=== PATIENT | male | born 1975 | race Hispanic/Latino ===

== ENCOUNTER 2018-06-13 00:20 | Emergency (ER) | payer BC ==
[2018-06-13] MEDS ORDERED: ACETAMINOPHEN 500 MG TAB ONE (01:01)
[2018-06-13] MEDS ORDERED: MORPHINE 4 MG/ML SYR ONE (01:49)
[2018-06-13] MEDS ORDERED: NA CHLORIDE 0.9% 1,000 ML ONE (01:50)
[2018-06-13 01:54] LABS: Absolute Lymphocytes (CBC) 1.1 K/uL (0.7-4.9); Absolute Monocytes 0.7 K/uL (0.1-1.3); Absolute Neutrophil 6.9 K/uL (1.8-8.0); Basophils % 0.2 % (0-1.3); Eosinophils % 0.1 % (0-4.4); Hematocrit 36.6 % (39.6-49.0); Lymphocytes % 12.9 % (15.3-44.8); MCV 95.7 fL (80-100); Monocytes % 7.8 % (3.3-12.3); Protime INR 1.2; RBC Red Blood Cell Count 3.83 M/uL (4.33-5.43)
[2018-06-13 02:10] LABS: ALT/SGPT 22 U/L (12-78); AST/SGOT 19 U/L (15-37); Albumin 3.7 g/dL (3.4-5.0); Alkaline Phosphatase 62 U/L (45-117); BUN Blood Urea Nitrogen 16 mg/dL (7-18); Bicarbonate 23 mmol/L (21-32); Bilirubin Direct 0.2 mg/dL (0-0.2); Bilirubin Total 0.8 mg/dL (0.2-1.0); Glucose Level 125 mg/dL (74-106); Magnesium 1.8 mg/dL (1.8-2.4); NT PRO-BNP 86 pg/mL (<125); Potassium 3.5 mmol/L (3.5-5.1); Protein, Total 7.5 g/dL (6.4-8.2); Sodium Level 140 mmol/L (136-145); Troponin (Emerg Dept Use Only) < 0.02 ng/mL (0.0-0.045)
[2018-06-13] MEDS ORDERED: KETOROLAC 30 MG/ML INJ ONE (02:23)
[2018-06-13] MEDS ORDERED: CEFTRIAXONE/SWI 1gm 1 GM/10 ML SYR ONE (02:43)
[2018-06-13] MEDS ORDERED: AZITHROMYCIN 250 MG TAB ONE (02:43)
--- NOTE | 2018-06-13 04:37 | EDPHYS ---
Physician Documentation [facility] Name: Placido Javier Age: 42 yrs Sex: Male : 1975 Arrival Date: 06/13/2018 Time: 00:22 Bed 20 Private MD: ED Physician Brian Ye HPI: 06/13 00:55 This 42 yrs old Male presents to ER via Ambulatory with complaints of Fever, cp Cough. 00:55 The patient or guardian reports cough, with productive sputum. cp 00:55 Onset: The symptoms/episode began/occurred 1 week(s) ago. Associated signs and cp symptoms: Pertinent positives: chest pain, fever, sore throat. The patient reports fever, with an emergency department temperature of 102.6 degrees Fahrenheit. Associated signs and symptoms: Pertinent positives: backache, Pertinent negatives: abdominal pain, altered mental status, diarrhea, skin rash, vomiting. Historical: - Allergies: 00:42 No Known Allergies; bb - Home Meds: 00:42 Metformin Oral [Active]; lisinopril Oral [Active]; Glipizide Oral [Active]; bb - PMHx: 00:42 Diabetes - NIDDM; Hypertension; bb - PSHx: 00:42 None; bb - Immunization history:: Adult Immunizations up to date. - Social history:: Smoking status: Patient/guardian denies using tobacco, Patient/guardian denies using alcohol, street drugs. - Ebola Screening: : No symptoms or risks identified at this time. ROS: 01:00 Constitutional: Positive for fever, Negative for poor PO intake. cp 01:00 Eyes: Negative for injury, pain, redness, and discharge. cp 01:00 ENT: Positive for sore throat, Negative for drainage from ear(s), ear pain, difficulty swallowing, difficulty handling secretions. 01:00 Cardiovascular: Positive for chest pain, of the left lower lateral chest, Negative for edema, palpitations. 01:00 Respiratory: Positive for cough, Negative for hemoptysis, shortness of breath, wheezing. 01:00 Abdomen/GI: Negative for abdominal pain, nausea, vomiting, and diarrhea. 01:00 Back: Positive for pain at rest, of the left subscapular area. 01:00 : Negative for urinary symptoms. 01:00 Skin: Negative for cellulitis, rash. 01:00 Neuro: Negative for altered mental status, headache, syncope, near syncope, weakness. 01:00 All other systems are negative. Exam: 01:05 Constitutional: The patient appears in no acute distress, alert, awake, cp non-diaphoretic, non-toxic, well developed, well nourished, obese. 01:05 Head/Face: Normocephalic, atraumatic. Eyes: Pupils equal round and reactive to light, cp extra-ocular motions intact. Lids and lashes normal. Conjunctiva and sclera are non-icteric and not injected. Cornea within normal limits. Periorbital areas with no swelling, redness, or edema. ENT: Nares patent. No nasal discharge, no septal abnormalities noted. Tympanic membranes are normal and external auditory canals are clear. Oropharynx with no redness, swelling, or masses, exudates, or evidence of obstruction, uvula midline. Mucous membranes moist. Neck: Trachea midline, no thyromegaly or masses palpated, and no cervical lymphadenopathy. Supple, full range of motion without nuchal rigidity, or vertebral point tenderness. No Meningismus. 01:05 Chest/axilla: Inspection: normal, Palpation: crepitus, is not appreciated, tenderness, that is mild, of the left lateral lower posterior chest. 01:05 Cardiovascular: Rate: normal, Rhythm: regular, Heart sounds: murmur, not appreciated, rub, not appreciated, gallop, not appreciated, Edema: is not appreciated, JVD: is not appreciated. 01:05 Respiratory: the patient does not display signs of respiratory distress, Respirations: normal, no use of accessory muscles, no retractions, no splinting, no tachypnea, labored breathing, is not present, Breath sounds: bronchial sounds, that are mild, are heard in the left posterior lower lobe, decreased breath sounds, are not appreciated, stridor, is not appreciated, + upper airway congestion. wheezing: is not appreciated. 01:05 Abdomen/GI: Inspection: obese Bowel sounds: active, all quadrants, Palpation: abdomen is soft and non-tender, in all quadrants, rebound tenderness, is not appreciated, involuntary guarding, is not appreciated. 01:05 Back: pain, that is moderate, of the left subscapular area, ROM is normal. 01:05 Skin: cellulitis, is not appreciated, no rash present. 01:05 Neuro: Orientation: to person, place \T\ time. Mentation: lucid, able to follow commands, Cerebellar function: is grossly normal, Motor: moves all fours, strength is normal, Sensation: is normal. 02:02 ECG was reviewed by the Attending Physician. Vital Signs: 00:42 BP 128 / 68; Pulse 98; Resp 16 S; Temp 102.6(O); Pulse Ox 96% on R/A; Weight 123.38 kg bb (R); Height 5 ft. 8 in. (172.72 cm) (R); Pain 7/10; 01:47 BP 113 / 60; Pulse 86; Resp 16 S; Pulse Ox 96% on R/A; jd3 02:19 Temp 102.2(O); jd3 02:48 BP 120 / 70; Pulse 78; Resp 16 S; Pulse Ox 96% on R/A; jd3 03:35 Pulse 80; Resp 15 S; Temp 99.5(O); Pulse Ox 99% on R/A; jd3 00:42 Body Mass Index 41.36 (123.38 kg, 172.72 cm) MDM: 00:27 Patient medically screened. 03:15 Data reviewed: vital signs, nurses notes, lab test result(s), EKG, radiologic studies, cp plain films, and as a result, I will discharge patient. 03:15 Test interpretation: by ED physician or midlevel provider: ECG, plain radiologic cp studies. Counseling: I had a detailed discussion with the patient and/or guardian regarding: the historical points, exam findings, and any diagnostic results supporting the discharge/admit diagnosis, lab results, radiology results, the need for outpatient follow up, a family practitioner, to return to the emergency department if symptoms worsen or persist or if there are any questions or concerns that arise at home. Response to treatment: the patient's symptoms have markedly improved after treatment. 06/13 01:05 Order name: Flu; Complete Time: 02:28 bb 06/13 02:28 Interpretation: Reviewed. 06/13 01:12 Order name: Basic Metabolic Panel; Complete Time: 02:12 cp 06/13 02:12 Interpretation: Normal except: CL 108; GLUC 125; CA 8.2. 06/13 01:12 Order name: CBC with Diff; Complete Time: 02:04 cp 06/13 02:04 Interpretation: Normal except: RBC 3.83; HGB 13.0; HCT 36.6; MONISHA% 79.0; LYM% 12.9. 06/13 01:12 Order name: LFT's; Complete Time: 02:12 06/13 02:12 Interpretation: Normal except: GLOB 3.8; A/G 1.0. 06/13 01:12 Order name: Magnesium; Complete Time: 02:12 06/13 01:12 Order name: NT PRO-BNP; Complete Time: 02:12 06/13 01:12 Order name: PT-INR; Complete Time: 02:04 06/13 02:05 Interpretation: Abnormal: PT 14.2. 06/13 01:12 Order name: Troponin (emerg Dept Use Only); Complete Time: 02:12 06/13 01:12 Order name: XRAY Chest Pa And Lat (2 Views); Complete Time: 23:07 06/13 23:07 Interpretation: Report reviewed. 06/13 01:12 Order name: Strep; Complete Time: 02:28 06/13 02:28 Interpretation: Reviewed. 06/13 02:17 Order name: Throat Culture EDAR 06/13 01:12 Order name: Cardiac monitoring; Complete Time: 01:46 06/13 01:12 Order name: EKG - Nurse/Tech; Complete Time: 01:59 06/13 01:12 Order name: IV Saline Lock; Complete Time: 01:40 06/13 01:12 Order name: Labs collected and sent; Complete Time: 01:40 06/13 01:12 Order name: O2 Per Protocol; Complete Time: 01:24 06/13 01:12 Order name: O2 Sat Monitoring; Complete Time: 01:24 EC:02 Rate is 86 beats/min. Rhythm is regular. MI interval is normal. QRS interval is normal. cp QT interval is normal. T waves are Inverted in lead III. Interpreted by me. Reviewed by me. Administered Medications: 00:55 Drug: Tylenol 1000 mg Route: PO; jd3 03:41 Follow up: Response: No adverse reaction jd3 01:46 Drug: morphine 2 mg Route: IVP; Site: right antecubital; jd3 02:45 Follow up: Response: No adverse reaction jd3 01:47 Drug: NS 0.9% 1000 ml Route: IV; Rate: 1 bolus; Site: right antecubital; jd3 03:36 Follow up: Response: No adverse reaction; IV Status: Completed infusion; IV Intake: jd3 1000ml 02:18 Drug: TORadol 30 mg Route: IVP; Site: right antecubital; jd3 02:45 Follow up: Response: No adverse reaction jd3 02:44 Drug: morphine 2 mg Route: IVP; Site: right antecubital; jd3 03:37 Follow up: Response: No adverse reaction jd3 02:45 Drug: Rocephin - (cefTRIAXone) 1 grams Route: IVPB; Infused Over: 30 mins; Site: right jd3 antecubital; 03:36 Follow up: Response: No adverse reaction; IV Status: Completed infusion jd3 02:45 Drug: Zithromax 500 mg Route: PO; jd3 03:36 Follow up: Response: No adverse reaction jd3 Disposition: 06/13/18 03:20 Discharged to Home. Impression: Pneumonia due to other specified bacteria. - Condition is Stable. - Discharge Instructions: Community-Acquired Pneumonia, Adult. - Prescriptions for Augmentin 875- 125 mg Oral Tablet - take 1 tablet by ORAL route every 12 hours for 10 days; 20 tablet. Ibuprofen 800 mg Oral Tablet - take 1 tablet by ORAL route every 8 hours As needed take with food; 30 tablet. Zithromax Z- Jt 250 mg Oral Tablet - take 1 tablet by ORAL route as directed for 5 days Day 1 - take two (2) tablets one time. Day 2, 3, 4 , 5 take one (1) tablet once daily.; 6 tablet. Albuterol Sulfate 90 mcg/actuation - inhale 1-2 puff by INHALATION route every 4-6 hours; 1 Inhaler. - Medication Reconciliation Form, Thank You Letter, Antibiotic Education, Prescription Opioid Use, Work release form form. - Follow up: Private Physician; When: 1 - 2 days; Reason: Recheck today's complaints. - Problem is new. - Symptoms have improved. Addendum: 06/14/2018 09:49 Co-signature as Attending Physician, Brian Ye MD I agree with the assessment and c nicholas plan of care. Signatures: Dispatcher [employer] Brian Oliva MD MD cha Ballard, Brenda RN RN Brian Jeffries PA PA cp Davies, Jonathon RN RN jd3 Corrections: (The following items were deleted from the chart) 06/13 02:12 02:12 Normal except: CL 108; GLUC 125. cp cp 03:40 03:20 06/13/2018 03:20 Discharged to Home. Impression: Pneumonia due to other specified jd3 bacteria. Condition is Stable. Forms are Medication Reconciliation Form, Thank You Letter, Antibiotic Education, Prescription Opioid Use. Follow up: Private Physician; When: 1 - 2 days; Reason: Recheck today's complaints. Problem is new. Symptoms have improved. cp
--- NOTE | 2018-06-13 04:37 | ER ---
Nurse's Notes [facility] Name: Placido Javier Age: 42 yrs Sex: Male : 1975 Arrival Date: 06/13/2018 Time: 00:22 Bed 20 Private MD: Diagnosis: Pneumonia due to other specified bacteria Presentation: 06/13 00:38 Presenting complaint: Patient states: he has had fever, cough, chills and back pain bb when coughing since last Thursday symptoms seemed to improve then got worse again. Transition of care: patient was not received from another setting of care. Onset of symptoms was June 05, 2018. Risk Assessment: Do you want to hurt yourself or someone else? Patient reports no desire to harm self or others. Initial Sepsis Screen: Does the patient meet any 2 criteria? No. Patient's initial sepsis screen is negative. Does the patient have a suspected source of infection? No. Patient's initial sepsis screen is negative. Care prior to arrival: None. 00:38 Method Of Arrival: Ambulatory bb 00:38 Acuity: SEKOU 3 bb Historical: - Allergies: 00:42 No Known Allergies; bb - Home Meds: 00:42 Metformin Oral [Active]; lisinopril Oral [Active]; Glipizide Oral [Active]; bb - PMHx: 00:42 Diabetes - NIDDM; Hypertension; bb - PSHx: 00:42 None; bb - Immunization history:: Adult Immunizations up to date. - Social history:: Smoking status: Patient/guardian denies using tobacco, Patient/guardian denies using alcohol, street drugs. - Ebola Screening: : No symptoms or risks identified at this time. Screenin:57 Abuse screen: Denies threats or abuse. Nutritional screening: No deficits noted. jd3 Tuberculosis screening: No symptoms or risk factors identified. Fall Risk Ambulatory Aid- None/Bed Rest/Nurse Assist (0 pts). Gait- Normal/Bed Rest/Wheelchair (0 pts) Mental Status- Oriented to own ability (0 pts). Total Pulido Fall Scale indicates No Risk (0-24 pts). Assessment: 00:55 General: Appears in no apparent distress. uncomfortable, Behavior is calm, cooperative, jd3 appropriate for age, Reports fever for. Pain: Complains of pain in back Quality of pain is described as aching. Neuro: Level of Consciousness is awake, alert, obeys commands, Oriented to person, place, time, situation, Appropriate for age. Cardiovascular: Denies chest pain, Heart tones S1 S2 present Capillary refill < 3 seconds Patient's skin is warm and dry. Respiratory: Reports cough that is productive, pain with cough Airway is patent Respiratory effort is even, unlabored, Respiratory pattern is regular, symmetrical, Breath sounds are clear bilaterally. GI: No signs and/or symptoms were reported involving the gastrointestinal system. : No signs and/or symptoms were reported regarding the genitourinary system. EENT: No signs and/or symptoms were reported regarding the EENT system. Derm: Skin is intact, Skin is dry, Skin is normal, Skin temperature is warm. Musculoskeletal: Circulation, motion, and sensation intact. Range of motion: intact in all extremities. 01:45 Reassessment: Patient appears in no apparent distress at this time. No changes from jd3 previously documented assessment. Patient and/or family updated on plan of care and expected duration. Pain level reassessed. Patient is alert, oriented x 3, equal unlabored respirations, skin warm/dry/pink. 02:49 Reassessment: Patient appears in no apparent distress at this time. No changes from jd3 previously documented assessment. Patient and/or family updated on plan of care and expected duration. Pain level reassessed. Patient is alert, oriented x 3, equal unlabored respirations, skin warm/dry/pink. 03:38 Reassessment: Patient appears in no apparent distress at this time. Patient and/or jd3 family updated on plan of care and expected duration. Pain level reassessed. Patient is alert, oriented x 3, equal unlabored respirations, skin warm/dry/pink. pt reported understanding of discharge instructions, even and steady gait upon discharge. Patient states feeling better. Vital Signs: 00:42 BP 128 / 68; Pulse 98; Resp 16 S; Temp 102.6(O); Pulse Ox 96% on R/A; Weight 123.38 kg bb (R); Height 5 ft. 8 in. (172.72 cm) (R); Pain 7/10; 01:47 BP 113 / 60; Pulse 86; Resp 16 S; Pulse Ox 96% on R/A; jd3 02:19 Temp 102.2(O); jd3 02:48 BP 120 / 70; Pulse 78; Resp 16 S; Pulse Ox 96% on R/A; jd3 03:35 Pulse 80; Resp 15 S; Temp 99.5(O); Pulse Ox 99% on R/A; jd3 00:42 Body Mass Index 41.36 (123.38 kg, 172.72 cm) ED Course: 00:22 Patient arrived in ED. ag3 00:27 Brian Matthew PA is PHCP. cp 00:27 rBian Ye MD is Attending Physician. cp 00:42 Triage completed. bb 00:42 Arm band placed on Patient placed in an exam room, on a stretcher, on pulse oximetry. bb Family accompanied patient. 00:51 Douglas Valentine RN is Primary Nurse. jd3 00:57 Patient has correct armband on for positive identification. Bed in low position. Call jd3 light in reach. Side rails up X 1. Adult w/ patient. 01:21 Patient moved to radiology. sg4 01:23 X-ray completed. Patient tolerated procedure well. sg4 01:23 Patient moved back from radiology. sg4 01:24 XRAY Chest Pa And Lat (2 Views) In Process Unspecified. EDMS 01:37 Inserted saline lock: 20 gauge in right antecubital area, using aseptic technique. jd3 Blood collected. 03:34 No provider procedures requiring assistance completed. IV discontinued, intact, jd3 bleeding controlled, No redness/swelling at site. Pressure dressing applied. Administered Medications: 00:55 Drug: Tylenol 1000 mg Route: PO; jd3 03:41 Follow up: Response: No adverse reaction jd3 01:46 Drug: morphine 2 mg Route: IVP; Site: right antecubital; jd3 02:45 Follow up: Response: No adverse reaction jd3 01:47 Drug: NS 0.9% 1000 ml Route: IV; Rate: 1 bolus; Site: right antecubital; jd3 03:36 Follow up: Response: No adverse reaction; IV Status: Completed infusion; IV Intake: jd3 1000ml 02:18 Drug: TORadol 30 mg Route: IVP; Site: right antecubital; jd3 02:45 Follow up: Response: No adverse reaction jd3 02:44 Drug: morphine 2 mg Route: IVP; Site: right antecubital; jd3 03:37 Follow up: Response: No adverse reaction jd3 02:45 Drug: Rocephin - (cefTRIAXone) 1 grams Route: IVPB; Infused Over: 30 mins; Site: right jd3 antecubital; 03:36 Follow up: Response: No adverse reaction; IV Status: Completed infusion jd3 02:45 Drug: Zithromax 500 mg Route: PO; jd3 03:36 Follow up: Response: No adverse reaction jd3 Intake: 03:36 IV: 1000ml; Total: 1000ml. jd3 Outcome: 03:20 Discharge ordered by . cp 03:34 Discharged to home ambulatory, with family. jd3 03:34 Condition: stable 03:34 Discharge instructions given to patient, family, Instructed on discharge instructions, follow up and referral plans. medication usage, Demonstrated understanding of instructions, follow-up care, medications, Prescriptions given X 4. 03:40 Patient left the ED. jd3 Signatures: Dispatcher [employer] Delia Almazan RN RN bb Page, Corey, PA PA cp Davies, Jonathon, RN RN jMyrna [email or web address] Keshia Dorantes sg4
[2018-06-13 05:04] VITALS: BP 120/70
[2018-06-13 05:06] VITALS: TEMP 99.5; O2SAT 99
--- NOTE | 2018-06-13 09:01 | RAD REPORT ---
EXAM DESCRIPTION: RAD - Chest Pa And Lat (2 Views) - 06/13/2018 1:24 am CLINICAL HISTORY: Cough, fever, chills COMPARISON: June 2017 TECHNIQUE: PA and lateral views of the chest were obtained. FINDINGS: The lungs are underinflated. Consolidation is present in the posterior left lung base. H eart size is normal and central vasculature is within normal limits. No pleural effusion or pneumoth orax seen. No acute bony finding noted. No aortic abnormality. IMPRESSION: Moderate-size left lung base pneumonia.
--- NOTE | 2018-06-14 07:21 | EKG ---
Test Date: 2018-06-13 Test Time: 01:53:59 Pool Table Operator: LISA MEASUREMENT RESULTS: Intervals: Rate: 86 CT: 156 QRSD: 84 QT: 368 QTc: 440 [place]: P: 26 CT: 156 QRS: 30 T: 22 INTERPRETIVE STATEMENTS: Normal sinus rhythm Normal ECG Compared to ECG 06/10/2017 07:51:15 Sinus bradycardia no longer present Myocardial infarct finding no longer present Electronically Signed On 06-14-18 07:20:49 CYBER INCIDENT RESPONDER by Westley Jones
== END 2018-06-13 03:40 | disposition home or self-care (01) ==
LOC: ER 00:20
DX: J15.8 Pneumonia due to other specified bacteria (principal); E11.9 Type 2 diabetes mellitus without complications; I10 Essential (primary) hypertension
CPT/HCPCS: 36415; 71046; 80048; 80076; 83735; 83880; 84484; 85025; 85610; 87070; 87081; 87804; 93005; 96361; 96365; 96375; 99284; J0696; J7030

== ENCOUNTER 2020-08-22 09:43 | Emergency (ER) | payer BC, OTHER ==
[2020-08-22] MEDS ORDERED: LEVALBUTEROL 1.25 MG/3 ML NEB ONE (10:41)
[2020-08-22 11:04] LABS: ALT/SGPT 24 U/L (12-78); AST/SGOT 28 U/L (15-37); Absolute Lymphocytes (CBC) 1.2 K/uL (0.7-4.9); Albumin 3.5 g/dL (3.4-5.0); Alkaline Phosphatase 89 U/L (45-117); BUN Blood Urea Nitrogen 16 mg/dL (7-18); Basophils % 0.2 % (0-1.3); Bicarbonate 25 mmol/L (21-32); Bilirubin Total 0.8 mg/dL (0.2-1.0); Glucose Level 106 mg/dL (74-106); Hematocrit 40.6 % (39.6-49.0); Lymphocytes % 26.7 % (15.3-44.8); MPV 8.5 fL (7.6-11.3); Potassium 3.6 mmol/L (3.5-5.1); Protein, Total 7.5 g/dL (6.4-8.2); RBC Red Blood Cell Count 4.19 M/uL (4.33-5.43); Sodium Level 139 mmol/L (136-145)
--- NOTE | 2020-08-22 12:06 | RAD REPORT ---
EXAM DESCRIPTION: CT - Chest For Pe Angio - 08/22/2020 11:55 am CLINICAL HISTORY: Cough COMPARISON: None. TECHNIQUE: Dynamically enhanced axial 3 mm thick images of the chest were obtained during administra tion of <100> mL Isovue 370 IV contrast. Coronal and oblique reconstruction images were generated and reviewed. Exam utilizes a protocol for optimal evaluation of pulmonary arterial tree. Maximum intensity projections 3D imaging was utilized All CT scans are performed using dose optimization technique as appropriate and may include automated exposure control or mA/KV adjustment according to patient size. FINDINGS: A pulmonary embolus is not seen. A thoracic aortic aneurysm is not noted. A pleural effusion is not seen. A pericardial effusion is not seen. Mild to moderate bilateral ground-glass opacities within the lungs IMPRESSION: Negative for a pulmonary embolism. Mild to moderate ground-glass opacities within the lungs can be seen with Covid pneumonia
--- NOTE | 2020-08-22 12:06 | RAD REPORT ---
EXAM DESCRIPTION: [place] Single View08/22/2020 10:29 am CLINICAL HISTORY: Shortness of breath COMPARISON: 2018 FINDINGS: [id number] bilateral pulmonary opacities. The heart is mildly enlarged. IMPRESSION: Mild to moderate bilateral pulmonary opacities probably pneumonia
[2020-08-22 12:25] LABS: SARS-COV-2 RT PCR POSITIVE (NEGATIVE)
--- NOTE | 2020-08-22 13:58 | EDPHYS ---
Physician Documentation [facility] Name: Placido Javier Age: 44 yrs Sex: Male : 1975 Arrival Date: 08/22/2020 Time: 09:47 Bed 17 Private MD: ED Physician Frantz Oneal HPI: 08/22 10:13 This 44 yrs old Male presents to ER via Ambulatory with complaints of jmm Breathing Difficulty. 10:13 The patient has shortness of breath with light activity. Onset: The symptoms/episode jmm began/occurred gradually, 1 day(s) ago. Duration: The symptoms are continuous. The patient's shortness of breath is aggravated by exertion, light activity. Associated signs and symptoms: Pertinent negatives: non-productive cough, fever. Historical: - Allergies: 10:01 No Known Allergies; ll1 - PMHx: 10:01 Diabetes - NIDDM; Hypertension; Pneumonia; ll1 - PSHx: 10:01 None; ll1 - Immunization history:: Flu vaccine is up to date. - Social history:: Smoking status: Patient denies any tobacco usage or history of. ROS: 10:13 Constitutional: Positive for fatigue. jmm 10:13 Respiratory: Positive for shortness of breath. 10:13 All other systems are negative. Exam: 10:13 Constitutional: This is a well developed, well nourished patient who is awake, alert, jmm and in no acute distress. Head/Face: atraumatic. Eyes: EOMI, no conjunctival erythema appreciated ENT: Moist Mucus Membranes Neck: Trachea midline, Supple Chest/axilla: Normal chest wall appearance and motion. Cardiovascular: Regular rate and rhythm. No edema appreciated Respiratory: Normal respirations, no respiratory distress appreciated Abdomen/GI: Non distended, soft Back: Normal ROM Skin: General appearance color normal MS/ Extremity: Moves all extremities, no obvious deformities appreciated, no edema noted to the lower extremities Neuro: Awake and alert, normal gait Psych: Behavior is normal, Mood is normal, Patient is cooperative and pleasant 10:37 ECG was reviewed by the Attending Physician. [facility] Vital Signs: 09:58 BP 135 / 88; Pulse 95; Resp 18; Temp 99.1; Pulse Ox 97% ; Weight 126.1 kg; Height 5 ft. ll1 8 in. (172.72 cm); Pain 0/10; 11:24 BP 139 / 84; Pulse 93; Resp 20; Pulse Ox 94% on R/A; em 12:30 BP 131 / 72; Pulse 93; Resp 18; Pulse Ox 94% on R/A; em 13:30 BP 108 / 82; Pulse 87; Resp 20; Pulse Ox 99% on R/A; em 09:58 Body Mass Index 42.27 (126.10 kg, 172.72 cm) ll1 MDM: 10:10 Patient medically screened. [facility] 13:56 Data reviewed: vital signs, nurses notes. Counseling: I had a detailed discussion with armaan the patient and/or guardian regarding: the historical points, exam findings, and any diagnostic results supporting the discharge/admit diagnosis, lab results, radiology results, the need for outpatient follow up, to return to the emergency department if symptoms worsen or persist or if there are any questions or concerns that arise at home. ED course: Patient is alert and non toxic in appearance in the ED. No signs of resp distress. Patient advised to follow up with pcp and otherwise given strict return precautions. Patient understood and agrees with the plan of care. . 08/22 10:11 Order name: CBC with Diff; Complete Time: 11:20 [facility] 08/22 10:11 Order name: CMP; Complete Time: 11:10 [facility] 08/22 10:11 Order name: D-Dimer; Complete Time: 11:20 [facility] 08/22 12:25 Order name: COVID-19/FLU A+B; Complete Time: 12:26 [facility] 08/22 10:11 Order name: Chest Single View XRAY; Complete Time: 12:09 [facility] 08/22 10:11 Order name: Saline Lock; Complete Time: 10:40 [facility] 08/22 10:15 Order name: EKG - Nurse/Tech; Complete Time: 10:30 [facility] 08/22 11:41 Order name: CT Chest For PE Angio; Complete Time: 12:09 [facility] EC:37 Rate is 42 beats/min. Rhythm is regular. QRS [place] is Normal. MD interval is normal. QRS jmm interval is normal. QT interval is normal. No Q waves. T waves are Normal. No ST changes noted. Reviewed by me. Administered Medications: 10:36 Drug: Xopenex (3) 1.25 mg Route: Inhalation; em 10:55 Follow up: Response: No adverse reaction; Marked relief of symptoms em 14:08 Drug: Decadron - Dexamethasone 10 mg Route: IVP; Site: right antecubital; em 14:20 Follow up: Response: No adverse reaction em Disposition: 08/22/20 13:58 Discharged to Home. Impression: Coronavirus infection, unspecified. - Condition is Stable. - Discharge Instructions: COVID-19. - Prescriptions for ivermectin 3 mg Oral tablet - take 6 tablet by ORAL route as directed one dose today, 2nd dose in 48 hrs; 12 tablet. Prednisone 20 mg Oral Tablet - take 3 tablet by ORAL route once daily for 5 days; 15 tablet. Zithromax Z- Jt 250 mg Oral Tablet - take 1 tablet by ORAL route as directed for 5 days Day 1 - take two (2) tablets one time. Day 2, 3, 4 , 5 take one (1) tablet once daily.; 6 tablet. Albuterol Sulfate 90 mcg/actuation - inhale 1-2 puff by INHALATION route every 4-6 hours; 1 Inhaler. - Medication Reconciliation Form, Thank You Letter, Antibiotic Education, Prescription Opioid Use, Work release form form. - Follow up: Private Physician; When: 2 - 3 days; Reason: Recheck today's complaints, Continuance of care, Re-evaluation by your physician. Addendum: 08/25/2020 10:02 Co-signature as Attending Physician, Frantz Oneal MD. r n Signatures: Dispatcher [employer] EDTX Rafael Gr PA PA jmm Munoz, Edgar RN Frantz Marrero MD MD rn Lewis, Lynsay, RN RN ll1 Corrections: (The following items were deleted from the chart) 08/22 11:17 10:48 CORONAVIRUS+MR.LAB.BRZ ordered. EDTX EDMS 11:18 10:48 Influenza Screen (A \T\ B)+BA.LAB.BRZ ordered. EDTX EDMS 14:21 13:58 08/22/2020 13:58 Discharged to Home. Impression: Coronavirus infection, em unspecified. Condition is Stable. Forms are Medication Reconciliation Form, Thank You Letter, Antibiotic Education, Prescription Opioid Use. Follow up: Private Physician; When: 2 - 3 days; Reason: Recheck today's complaints, Continuance of care, Re-evaluation by your physician. armaan
--- NOTE | 2020-08-22 13:58 | ER ---
Nurse's Notes [facility] Name: Palcido Javier Age: 44 yrs Sex: Male : 1975 Arrival Date: 08/22/2020 Time: 09:47 Bed 17 Private MD: Diagnosis: Coronavirus infection, unspecified Presentation: 08/22 09:58 Chief complaint: Patient states: Cough, SOB, fever 100.8, little diarrhea for 4 days. ll1 Coronavirus screen: Client denies travel out of the [place] in the last 14 days. congestion, cough unrelated to allergies, diarrhea, difficulty breathing, fatigue, fever, runny nose, shaking with chills, shortness of breath, Client presents with at least one sign or symptom that may indicate coronavirus-19. Standard/surgical mask placed on the client. Ebola Screen: Patient denies travel to an Ebola-affected area in the 21 days before illness onset. Initial Sepsis Screen: Does the patient meet any 2 criteria? HR > 90 bpm. No. Patient's initial sepsis screen is negative. Does the patient have a suspected source of infection? Yes: Productive cough/pneumonia. Risk Assessment: Do you want to hurt yourself or someone else? Patient reports no desire to harm self or others. Onset of symptoms was August 18, 2020. 09:58 Method Of Arrival: Ambulatory ll1 09:58 Acuity: SEKOU 3 ll1 Historical: - Allergies: 10:01 No Known Allergies; ll1 - PMHx: 10:01 Diabetes - NIDDM; Hypertension; Pneumonia; ll1 - PSHx: 10:01 None; ll1 - Immunization history:: Flu vaccine is up to date. - Social history:: Smoking status: Patient denies any tobacco usage or history of. Screenin:30 Abuse screen: Denies threats or abuse. Nutritional screening: No deficits noted. em Tuberculosis screening: No symptoms or risk factors identified. Fall Risk None identified. Assessment: 10:30 General: Appears in no apparent distress. comfortable, Behavior is calm, cooperative, em appropriate for age, Reports fever for 2-3 days. Pain: Complains of pain in chest Pain currently is 0 out of 10 on a pain scale. Aggravated by exercise, increased activity. Neuro: Level of Consciousness is awake, alert, obeys commands, Oriented to person, place, time, situation, Appropriate for age. Cardiovascular: Reports chest pain, shortness of breath, Denies nausea, Rhythm is sinus rhythm. Respiratory: Reports shortness of breath on exertion Airway is patent Respiratory effort is even, unlabored, Respiratory pattern is regular, symmetrical, Breath sounds are diminished bilaterally. GI: Reports diarrhea. Derm: Skin is intact, is healthy with good turgor, Skin is pink, warm \T\ dry. Musculoskeletal: Capillary refill < 3 seconds, Range of motion: intact in all extremities. 11:24 Reassessment: Patient appears in no apparent distress at this time. Patient and/or em family updated on plan of care and expected duration. Pain level reassessed. Patient is alert, oriented x 3, equal unlabored respirations, skin warm/dry/pink. 12:30 Reassessment: Patient appears in no apparent distress at this time. Patient and/or em family updated on plan of care and expected duration. Pain level reassessed. Patient is alert, oriented x 3, equal unlabored respirations, skin warm/dry/pink. 13:30 Reassessment: Patient appears in no apparent distress at this time. Patient and/or em family updated on plan of care and expected duration. Pain level reassessed. Patient is alert, oriented x 3, equal unlabored respirations, skin warm/dry/pink. Vital Signs: 09:58 BP 135 / 88; Pulse 95; Resp 18; Temp 99.1; Pulse Ox 97% ; Weight 126.1 kg; Height 5 ft. ll1 8 in. (172.72 cm); Pain 0/10; 11:24 BP 139 / 84; Pulse 93; Resp 20; Pulse Ox 94% on R/A; em 12:30 BP 131 / 72; Pulse 93; Resp 18; Pulse Ox 94% on R/A; em 13:30 BP 108 / 82; Pulse 87; Resp 20; Pulse Ox 99% on R/A; em 09:58 Body Mass Index 42.27 (126.10 kg, 172.72 cm) 1 ED Course: 09:47 Patient arrived in ED. mr 10:00 Triage completed. 1 10:00 Arm band placed on Patient placed in an exam room, on a stretcher. [facility] 10:01 Rafael Gr PA is PHCP. [facility] 10:01 Frantz Oneal MD is Attending Physician. [facility] 10:09 Polo Hernandez, RN is Primary Nurse. em 10:30 Chest Single View XRAY In Process Unspecified. EDMS 10:30 Patient has correct armband on for positive identification. Bed in low position. Call em light in reach. Side rails up X2. Pulse ox on. NIBP on. 10:30 EKG done, by ED staff, reviewed by Frantz Oneal MD. [facility] 10:40 Initial lab(s) drawn, by wi, sent to lab. Inserted saline lock: 20 gauge in right em antecubital area, using aseptic technique. Blood collected. 11:55 CT Chest For PE Angio In Process Unspecified. EDMS 14:19 No provider procedures requiring assistance completed. IV discontinued, intact, em bleeding controlled, No redness/swelling at site. Pressure dressing applied. Administered Medications: 10:36 Drug: Xopenex (3) 1.25 mg Route: Inhalation; em 10:55 Follow up: Response: No adverse reaction; Marked relief of symptoms em 14:08 Drug: Decadron - Dexamethasone 10 mg Route: IVP; Site: right antecubital; em 14:20 Follow up: Response: No adverse reaction em Outcome: 13:58 Discharge ordered by MD. [facility] 14:19 Discharged to home ambulatory. em 14:19 Condition: stable 14:19 Discharge instructions given to patient, Instructed on discharge instructions, follow up and referral plans. medication usage, Demonstrated understanding of instructions, follow-up care, medications, Prescriptions given X 4. 14:21 Patient left the ED. em Signatures: Dispatcher [employer] EDNM Rafael Gr PA PA [facility] MarrAlyssa Polo Hernandez, RN RN Tiffanie Granados Ruthie Singh RN RN [facility]
[2020-08-22] MEDS ORDERED: dexAMETHasone 10 MG/ML VIAL ONE (14:17)
[2020-08-22 14:25] VITALS: TEMP 99.1
[2020-08-22 14:28] VITALS: BP 108/82; O2SAT 99
== END 2020-08-22 14:21 | disposition home or self-care (01) ==
LOC: ER 09:43
DX: U07.1 COVID-19 (principal)
CPT/HCPCS: 85025; 36415; 85379; 80053; 0240U; 71275; 71045; Q9967; J1100; 93005; 96374; 99285

== ENCOUNTER 2022-08-02 15:20 | Emergency (ER) | payer OTHER ==
[2022-08-02] MEDS ORDERED: KETOROLAC 30 MG/ML INJ ONE (16:10)
--- NOTE | 2022-08-02 17:17 | RAD REPORT ---
EXAM DESCRIPTION: RAD - Lumbar Spine 3 Views - 08/02/2022 5:10 pm CLINICAL HISTORY: PAIN COMPARISON: No comparisons FINDINGS: No acute fracture. No malalignment. No significant focal degenerative changes. IMPRESSION: No acute osseous abnormality involving the lumbar spine.
--- NOTE | 2022-08-02 17:19 | ER ---
Nurse's Notes [facility] Name: Placido Javier Age: 46 yrs Sex: Male : 1975 Arrival Date: 08/02/2022 Time: 15:22 Bed IW4 Private MD: Diagnosis: Low back pain Presentation: 08/02 15:32 Chief complaint: Patient states: non-radiating right lower back pain x1 month. worse kb3 for the last week. Denies injury. Coronavirus screen: Vaccine status: Patient reports receiving the 2nd dose of the covid vaccine. Client denies travel out of the [place] in the last 14 days. Ebola Screen: Patient negative for fever greater than or equal to 101.5 degrees Fahrenheit, and additional compatible Ebola Virus Disease symptoms Patient denies exposure to infectious person. Patient denies travel to an Ebola-affected area in the 21 days before illness onset. Initial Sepsis Screen: Does the patient meet any 2 criteria? No. Patient's initial sepsis screen is negative. Does the patient have a suspected source of infection? No. Patient's initial sepsis screen is negative. Risk Assessment: Do you want to hurt yourself or someone else? Patient reports no desire to harm self or others. Onset of symptoms is unknown. 15:32 Method Of Arrival: Ambulatory kb3 15:32 Acuity: SEKOU 4 kb3 Triage Assessment: 15:34 General: Appears in no apparent distress. Behavior is calm, cooperative. Pain: kb3 Complains of pain in right low back Pain does not radiate. Pain currently is 8 out of 10 on a pain scale. Quality of pain is described as sharp, Pain began 1 month. Historical: - Allergies: 15:34 No Known Allergies; kb3 - Home Meds: 15:34 lisinopril Oral [Active]; kb3 - PMHx: 15:34 Diabetes - NIDDM; Hypertension; Pneumonia; kb3 - PSHx: 15:34 None; kb3 - Immunization history:: Adult Immunizations up to date, Client reports receiving the 2nd dose of the Covid vaccine, Last tetanus immunization: up to date. - Social history:: Smoking status: Patient denies any tobacco usage or history of. Screenin:55 [facility] ED Fall Risk Assessment (Adult) History of falling in the last 3 months, kb3 including since admission No falls in past 3 months (0 pts) Confusion or Disorientation No (0 pts) Intoxicated or Sedated No (0 pts) Impaired Gait No (0 pts) Mobility Assist Device Used No (0 pt) Altered Elimination No (0 pt) Score/Fall Risk Level 0 - 2 = Low Risk Oriented to surroundings, Maintained a safe environment, Educated pt \T\ family on fall prevention, incl call for assistance when getting out of bed, Assessed \T\ reinforced patient's understanding of fall precautions, Provided non-skid footwear, Hourly rounding (assess needs \T\ fall precautionary measures) done, Used ambulatory aids as needed (educated on \T\ assisted with), Used gait belt as appropriate. Abuse screen: Denies threats or abuse. Denies injuries from another. Nutritional screening: No deficits noted. Tuberculosis screening: No symptoms or risk factors identified. Assessment: 15:55 General: Pt moved to room 11, ambulatory without distress.. kb3 15:55 Neuro: No deficits noted. Level of Consciousness is awake, alert, obeys commands, kb3 Oriented to person, place, time, situation, Nurses Aide are equal bilaterally Moves all extremities. Full function Gait is steady, Speech is normal, Facial symmetry appears normal. Vital Signs: 15:32 BP 137 / 95; Pulse 78; Resp 18; Temp 98.8; Pulse Ox 99% ; Weight 131.54 kg; Height 5 kb3 ft. 8 in. (172.72 cm); Pain 7/10; 15:32 Body Mass Index 44.09 (131.54 kg, 172.72 cm) kb3 ED Course: 15:22 Patient arrived in ED. rg4 15:26 Katie Burris [facility]-C [facility] snw 15:26 Frantz Oenal MD is Attending Physician. snw 15:32 Aspen Wilson, RUTH is Primary Nurse. kb3 15:34 Triage completed. kb3 15:34 Arm band placed on right wrist. kb3 15:55 Patient has correct armband on for positive identification. kb3 15:55 No provider procedures requiring assistance completed. Patient did not have IV access kb3 during this emergency room visit. 17:11 Lumbar Spine (3 Views) XRAY In Process Unspecified. EDMS Administered Medications: 16:28 Drug: Ketorolac 60 mg Route: IM; Site: right ventrogluteal; kb3 17:10 Follow up: Response: No adverse reaction; Pain is decreased kb3 Medication: 15:55 VIS not applicable for this client. kb3 Outcome: 17:19 Discharge ordered by . madhuri 17:30 Discharged to home ambulatory. kb3 17:30 Condition: stable 17:30 Discharge instructions given to patient, Instructed on discharge instructions, follow up and referral plans. medication usage, Demonstrated understanding of instructions, follow-up care, medications, Prescriptions given X 3. 17:58 Patient left the ED. kb3 Signatures: Dispatcher [employer] EDMS Katie Burris, PROGRAM DEVELOPMENT MANAGER-C PROGRAM DEVELOPMENT MANAGER-Rocio Burgos rg4 Aspen Wilson, RN RN kb3 Corrections: (The following items were deleted from the chart) 15:35 15:34 Home Meds: Glipizide Oral; kb3 kb3 15:35 15:34 Home Meds: Metformin Oral; kb3 kb3
--- NOTE | 2022-08-02 17:19 | EDPHYS ---
Physician Documentation [facility] Name: Placido Javier Age: 46 yrs Sex: Male : 1975 Arrival Date: 08/02/2022 Time: 15:22 Bed IW4 Private MD: ED Physician Frantz Oneal HPI: 08/02 15:39 This 46 yrs old Male presents to ER via Ambulatory with complaints of Back snw Pain. 15:39 The patient presents with pain that is acute. The symptoms are located in the low back. snw Onset: The symptoms/episode began/occurred 1 month(s) ago, and became worse 3 day(s) ago. Associated signs and symptoms: The patient has no apparent associated signs or symptoms. Modifying factors: The patient symptoms are alleviated by nothing, the patient symptoms are aggravated by playing sports, P45. The patient has not experienced similar symptoms in the past. The patient has not recently seen a physician. Historical: - Allergies: 15:34 No Known Allergies; kb3 - Home Meds: 15:34 lisinopril Oral [Active]; kb3 - PMHx: 15:34 Diabetes - NIDDM; Hypertension; Pneumonia; kb3 - PSHx: 15:34 None; kb3 - Immunization history:: Adult Immunizations up to date, Client reports receiving the 2nd dose of the Covid vaccine, Last tetanus immunization: up to date. - Social history:: Smoking status: Patient denies any tobacco usage or history of. ROS: 15:38 Constitutional: Negative for fever, chills, and weight loss, Eyes: Negative for injury, snw pain, redness, and discharge, ENT: Negative for injury, pain, and discharge, Neck: Negative for injury, pain, and swelling, Cardiovascular: Negative for chest pain, palpitations, and edema, Respiratory: Negative for shortness of breath, cough, wheezing, and pleuritic chest pain, Abdomen/GI: Negative for abdominal pain, nausea, vomiting, diarrhea, and constipation, : Negative for injury, bleeding, discharge, and swelling, MS/Extremity: Negative for injury and deformity, Skin: Negative for injury, rash, and discoloration, Neuro: Negative for headache, weakness, numbness, tingling, and seizure, Psych: Negative for depression, anxiety, suicide ideation, homicidal ideation, and hallucinations. 15:38 Back: Positive for pain at rest, Negative for injury or acute deformity, radiated pain. Exam: 15:38 Constitutional: This is a well developed, well nourished patient who is awake, alert, snw and in no acute distress. Head/Face: Normocephalic, atraumatic. Eyes: Pupils equal round and reactive to light, extra-ocular motions intact. Lids and lashes normal. Conjunctiva and sclera are non-icteric and not injected. Cornea within normal limits. Periorbital areas with no swelling, redness, or edema. ENT: Nares patent. No nasal discharge, no septal abnormalities noted. Tympanic membranes are normal and external auditory canals are clear. Oropharynx with no redness, swelling, or masses, exudates, or evidence of obstruction, uvula midline. Mucous membranes moist. Neck: Trachea midline, no thyromegaly or masses palpated, and no cervical lymphadenopathy. Supple, full range of motion without nuchal rigidity, or vertebral point tenderness. No Meningismus. Chest/axilla: Normal chest wall appearance and motion. Nontender with no deformity. No lesions are appreciated. Cardiovascular: Regular rate and rhythm with a normal S1 and S2. No gallops, murmurs, or rubs. Normal PMI, no JVD. No pulse deficits. Respiratory: Lungs have equal breath sounds bilaterally, clear to auscultation and percussion. No rales, rhonchi or wheezes noted. No increased work of breathing, no retractions or nasal flaring. Abdomen/GI: Soft, non-tender, with normal bowel sounds. No distension or tympany. No guarding or rebound. No evidence of tenderness throughout. Skin: Warm, dry with normal turgor. Normal color with no rashes, no lesions, and no evidence of cellulitis. MS/ Extremity: Pulses equal, no cyanosis. Neurovascular intact. Full, normal range of motion. Neuro: Awake and alert, GCS 15, oriented to person, place, time, and situation. Cranial nerves II-XII grossly intact. Motor strength 5/5 in all extremities. Sensory grossly intact. Cerebellar exam normal. Normal gait. Psych: Awake, alert, with orientation to person, place and time. Behavior, mood, and affect are within normal limits. 15:38 Back: pain, that is moderate, of the right low back, normal spinal alignment noted, CVA tenderness, is absent. 15:38 Neuro: Exam negative for Vital Signs: 15:32 BP 137 / 95; Pulse 78; Resp 18; Temp 98.8; Pulse Ox 99% ; Weight 131.54 kg; Height 5 kb3 ft. 8 in. (172.72 cm); Pain 7/10; 15:32 Body Mass Index 44.09 (131.54 kg, 172.72 cm) kb3 MDM: 15:34 Patient medically screened. snw 17:19 Data reviewed: vital signs, nurses notes. Data interpreted: Pulse oximetry: on room air snw is 99 %. Interpretation: acceptable. Counseling: I had a detailed discussion with the patient and/or guardian regarding: the historical points, exam findings, and any diagnostic results supporting the discharge/admit diagnosis, radiology results, the need for outpatient follow up, to return to the emergency department if symptoms worsen or persist or if there are any questions or concerns that arise at home. Special discussion: I have referred the patient to see his PCP for further evaluation of high blood pressure. Based on the history and exam findings, there is no indication for further emergent testing or inpatient evaluation. I discussed with the patient/guardian the need to see the primary care provider for further evaluation of the symptoms. 08/02 15:37 Order name: Lumbar Spine (3 Views) XRAY; Complete Time: 17:19 snw Administered Medications: 16:28 Drug: Ketorolac 60 mg Route: IM; Site: right ventrogluteal; kb3 17:10 Follow up: Response: No adverse reaction; Pain is decreased kb3 Disposition: 18:06 Co-signature as Attending Physician, Frantz Oneal MD. rn Disposition Summary: 08/02/22 17:19 Discharge Ordered Location: Home snw Condition: Stable snw Diagnosis - Low back pain snw Followup: snw - With: Emergency Department - When: As needed - Reason: Worsening of condition Followup: snw - With: Private Physician - When: 2 - 3 days - Reason: Recheck today's complaints, Continuance of care, Re-evaluation by your physician Discharge Instructions: - Discharge Summary Sheet snw - Acute Back Pain, Adult snw - Musculoskeletal Pain snw - Back Injury Prevention, [id number]-[id number] snw - How to Use Cold Therapy snw - Heat Therapy snw Forms: - Medication Reconciliation Form snw - Thank You Letter snw - Antibiotic Education snw - Prescription Opioid Use snw Prescriptions: - Diclofenac Sodium 75 mg Oral Tablet Sustained Release - take 1 tablet by ORAL route 2 times per day; 30 tablet; Refills: 0, Product snw Selection Permitted - orphenadrine citrate 100 mg Oral Tablet Sustained Release - take 1 tablet by ORAL route 2 times per day As needed; 20 tablet; Refills: 0, snw Product Selection Permitted - Pepcid 20 mg Oral Tablet - take 1 tablet by ORAL route once daily; 20 tablet; Refills: 0, Product snw Selection Permitted Signatures: Dispatcher [employer] EDMS Katie Burris, [facility] Frantz Oneal MD MD rn Bradberry, Kelly, RN RN kb3 Corrections: (The following items were deleted from the chart) 15:35 15:34 Home Meds: Glipizide Oral; kb3 kb3 15:35 15:34 Home Meds: Metformin Oral; kb3 kb3
[2022-08-02 18:07] VITALS: BP 137/95; TEMP 98.8; O2SAT 99
== END 2022-08-02 17:58 | disposition home or self-care (01) ==
LOC: ER 15:20
DX: M54.50 Low back pain, unspecified (principal); I10 Essential (primary) hypertension; E11.9 Type 2 diabetes mellitus without complications
CPT/HCPCS: 72100; 96372; 99283

== ENCOUNTER 2024-03-04 21:15 | Emergency (ER) | payer OTHER ==
[2024-03-04] MEDS ORDERED: IBUPROFEN 400 MG TAB ONE (21:34)
[2024-03-04] MEDS ORDERED: NA CHLORIDE 0.9% 2,000 ML ONE (22:34)
[2024-03-04] MEDS ORDERED: ACETAMINOPHEN 500 MG TAB ONE (22:34)
[2024-03-04] MEDS ORDERED: GUAIFENESIN/DM 5 ML UCUP ONE ×2 (22:42→22:43)
[2024-03-04 22:43] LABS: SARS-CoV-2 Antigen CONTROL BLUE LINE VIS/BG OK; SARS-CoV-2 Antigen Rapid Res Negative (Negative)
[2024-03-04 22:45] LABS: Absolute Lymphocytes (CBC) 1.4 K/uL (0.7-4.9); Absolute Monocytes 0.3 K/uL (0.1-1.3); Absolute Neutrophil 4.4 K/uL (1.8-8.0); Basophils % 0.5 % (0-1.3); Hematocrit 32.3 % (39.6-49.0); Hemoglobin 11.4 g/dL (13.6-17.9); Lymphocytes % 22.8 % (15.3-44.8); MCH 32.9 pg (27.0-35.0); MCHC 35.3 g/dL (32.0-36.0); MCV 93.3 fL (80-100); MPV 9.4 fL (7.6-11.3); Monocytes % 4.8 % (3.3-12.3); Neutrophils % 71.9 % (41.7-73.7); Nucleated Red Blood Cells % 0.1 % (0-0); Platelets 120 thou/uL (152-406); RBC Red Blood Cell Count 3.46 M/uL (4.33-5.43); Red Cell Distribution Width 12.6 % (12.1-15.2)
[2024-03-04 23:00] LABS: Monoscreen NEG (NEG)
[2024-03-04 23:03] LABS: Albumin 3.1 g/dL (3.4-5.0); Albumin/Globulin Ratio 0.8 (1.1-1.8); Anion Gap 11.6 mEq/L (5.0-15.0); Bilirubin Total 1.3 mg/dL (0.2-1.0); Globulin 3.9 g/dL (2.3-3.5); Potassium 3.6 mEq/L (3.5-5.1)
[2024-03-05 00:14] LABS: Specific Gravity > 1.030 (1.005-1.030); Sqamous Epithelial <5 /HPF (None Seen); Urine Bacteria None Seen /HPF (<20); Urine Bilirubin NEGATIVE (Negative); Urine Blood 3+ (OVER) (Negative); Urine Clarity Extremely Turbid (Clear); Urine Color Yellow (Yellow); Urine Culture Reflex Order NOT NEEDED; Urine Glucose NEGATIVE (Negative); Urine Ketones TRACE (Negative); Urine Microscopic Reflex YN ORDER UMIC; Urine Mucus 4+ /HPF (None Seen); Urine Nitrite NEGATIVE (Negative); Urine Protein 3+ (Negative); Urine Urobilinogen 2+ (Normal)
[2024-03-05] MEDS ORDERED: NA CHLORIDE 0.9% 50 ML ONE (01:22)
[2024-03-05] MEDS ORDERED: CEFTRIAXONE 1000 MG/VIAL ONE (01:22)
[2024-03-05] MEDS ORDERED: AZITHROMYCIN 250 MG TAB ONE (01:23)
--- NOTE | 2024-03-05 01:43 | ER ---
Nurse's Notes [facility] Name: Placido Javier Age: 48 yrs Sex: Male : 1975 Arrival Date: 03/04/2024 Time: 21:15 Bed 11 Private MD: Diagnosis: Acute bronchitis, unspecified;Febrile illness, acute bacterial bronchitis Presentation: 03/04 21:26 Chief complaint: Patient states: Pt c/o fever/chills, vomiting, diarrhea, and body tl4 cramps since Thursday. Pt reports a non-productive cough x 2 weeks. Pt took Tylenol cold and flu at 1815. Pt had negative covid today. Coronavirus screen: chills, congestion, cough unrelated to allergies, diarrhea, fatigue, fever, headache, muscle pain, shaking with chills, sore throat, vomiting. The client reports previous COVID testing was negative. Date of collection: March 04, 2024. Ebola Screen: No symptoms or risks identified at this time. Initial Sepsis Screen: Does the patient meet any 2 criteria? Temp <36.0*C (96.8*F)) or > 38.3*C (100.9*F). HR > 90 bpm. Yes Does the patient have a suspected source of infection? No. Patient's initial sepsis screen is negative. Risk Assessment: Do you want to hurt yourself or someone else? Patient reports no desire to harm self or others. Onset of symptoms was February 29, 2024. 21:26 Method Of Arrival: Ambulatory tl4 21:26 Acuity: SEKOU 3 tl4 Triage Assessment: 21:31 General: Appears ill, Behavior is cooperative. Pain: Denies pain. EENT: Reports pain tl4 when swallowing. Neuro: Level of Consciousness is awake, alert, obeys commands, Oriented to person, place, time, situation. Cardiovascular: Capillary refill < 3 seconds Patient's skin is warm and dry. Respiratory: Reports cough that is non-productive, since 2 weeks ago. GI: Reports diarrhea, vomiting. : No signs and/or symptoms were reported regarding the genitourinary system. Derm: No signs and/or symptoms reported regarding the dermatologic system. Musculoskeletal: No signs and/or symptoms reported regarding the musculoskeletal system. Historical: - Allergies: 21:30 No Known Allergies; tl4 - Home Meds: 21:30 lisinopril 40 mg oral tablet 1 tab daily [Active]; tl4 - PMHx: 21:30 Diabetes - NIDDM; Hypertension; Pneumonia; tl4 - PSHx: 21:30 None; tl4 - Immunization history:: Adult Immunizations unknown. - Infectious Disease History:: Denies. - Social history:: Smoking status: Patient denies any tobacco usage or history of. - Family history:: not pertinent. Screenin/03 01:58 [facility] ED Fall Risk Assessment (Adult) History of falling in the last 3 months, ss including since admission No falls in past 3 months (0 pts) Confusion or Disorientation No (0 pts) Intoxicated or Sedated No (0 pts) Impaired Gait No (0 pts) Mobility Assist Device Used No (0 pt) Altered Elimination No (0 pt) Score/Fall Risk Level 0 - 2 = Low Risk Oriented to surroundings, Maintained a safe environment. Abuse screen: Denies threats or abuse. Denies injuries from another. Nutritional screening: No deficits noted. Tuberculosis screening: Never had TB. Assessment: 03/04 23:30 General: Appears uncomfortable, Behavior is calm, cooperative. General: Reports fever ss for > 3 days, feeling ill for > 3 days, fatigue for >3 days. Neuro: Level of Consciousness is awake, alert, obeys commands. Respiratory: Reports cough that is since x 1 week Airway is patent Respiratory effort is even, unlabored, Respiratory pattern is regular, symmetrical. EENT: Oral mucosa is moist. Derm: Skin is pink, warm \T\ dry. normal. 23:44 Reassessment: Pt ambulated to restroom with steady gait. ss 03/05 00:23 Respiratory: Respiratory effort is even, unlabored. : Urine is tea colored. ss 01:00 Reassessment: No changes from previously documented assessment. at bedside. Call ss light remains within reach. Pt drank 1 gatorade bottle. 02:02 Reassessment: Patient appears in no apparent distress at this time. Patient and/or ss family updated on plan of care and expected duration. Pain level reassessed. Patient is alert, oriented x 3, equal unlabored respirations, skin warm/dry/pink. Patient states feeling better. Patient states symptoms have improved. Vital Signs: 03/04 21:26 BP 145 / 86; Pulse 116; Resp 20; Temp 103.2(O); Pulse Ox 95% on R/A; Weight 133.81 kg; tl4 Height 5 ft. 8 in. ; Pain 0/10; 03/05 00:11 BP 140 / 82; Pulse 85; Resp 16; Temp 99(O); Pulse Ox 100% on R/A; ss 03/04 21:26 Body Mass Index 44.85 (133.81 kg, 172.72 cm) tl4 03/04 21:26 Pain Scale: Adult tl4 ED Course: 03/04 21:17 Patient arrived in ED. mr 21:19 Simon Doherty MD is Attending Physician. sp4 21:30 Triage completed. tl4 21:32 Arm band placed on right wrist. tl4 22:00 Strep Sent. tl4 22:00 Flu Sent. tl4 22:00 SARS RAPID Sent. tl4 22:01 COVID swab sent to lab. Flu and/or RSV swab sent to lab. Strep swab sent to lab. tl4 22:13 Strep Sent. tl4 22:13 Flu Sent. tl4 22:38 Inserted saline lock: 20 gauge in right antecubital area, using aseptic technique. af3 Blood collected. Flushed with 10 mL NS. 22:38 [place] Screen Profile Sent. af3 22:38 CBC with Diff Sent. af3 22:38 CMP Sent. af3 22:38 Lipase Sent. af3 23:00 Patient has correct armband on for positive identification. Bed in low position. Call ss light in reach. 23:03 Chest Pa And Lat (2 Views) XRAY In Process Unspecified. EDMS 03/05 00:10 Roxy Fajardo, RN is Primary Nurse. ss 01:59 No provider procedures requiring assistance completed. IV discontinued, intact, ss bleeding controlled, No redness/swelling at site. Pressure dressing applied. Administered Medications: 03/04 21:37 Drug: Ibuprofen PO 800 mg PO once Route: PO; tl4 22:13 Follow up: Response: No adverse reaction; Temperature is decreased tl4 22:51 Drug: Acetaminophen PO 1000 mg PO once Route: PO; ss 03/05 02:05 Follow up: Response: No adverse reaction; Marked relief of symptoms; Temperature is ss decreased 03/04 22:51 Drug: NS 0.9% IV 1000 ml IV at 1 bolus Per protocol; 1000 mL bolus Route: IV; Rate: 1 ss bolus; Site: right antecubital; 03/05 00:02 Follow up: IV Status: Completed infusion; IV Intake: 1000ml ss 03/04 22:51 Drug: Dextromethorphan-Guaifenesin PO Liquid 10 mg-100 mg/5 mL 10 ml PO once Route: PO; ss 03/05 01:58 Follow up: Response: No adverse reaction 00:10 Drug: NS 0.9% IV 1000 ml IV at 1 bolus Per protocol; 1000 mL bolus Route: IV; Rate: 1 ss bolus; Site: right antecubital; 01:30 Follow up: IV Status: Completed infusion; IV Intake: 1000ml 01:25 Drug: Rocephin - Rocephin (cefTRIAXone) IVPB 1 grams IVPB once over 30 mins; (mix in 50 ss mL NS) Route: IVPB; Infused Over: 30 mins; Site: right antecubital; 02:04 Follow up: IV Status: Completed infusion 01:25 Drug: AZITHromycin PO 500 mg PO once Route: PO; ss 01:58 Follow up: Response: No adverse reaction; Medication administered at discharge. ss Intake: 00:02 IV: 1000ml; Total: 1000ml. ss 01:30 IV: 1000ml; Total: 2000ml. Outcome: 01:42 Discharge ordered by MD. winter 02:00 Discharged to home ambulatory, with family, 02:00 Condition: improved 02:00 Discharge instructions given to patient, family, Instructed on discharge instructions, follow up and referral plans. medication usage, Demonstrated understanding of instructions, follow-up care, medications, Prescriptions given X 4, 02:03 Patient left the ED. Signatures: Dispatcher [employer] EDTX Alyssa Marr, Reg Reg Roxy Null, RN RN Simon Huerta MD MD sp4 Leo Bey RN RN 4 April Davenport
--- NOTE | 2024-03-05 01:43 | EDPHYS ---
Physician Documentation [facility] Name: Placido Javier Age: 48 yrs Sex: Male : 1975 Arrival Date: 03/04/2024 Time: 21:15 Bed 11 Private MD: ED Physician Simon Doherty HPI: 03/04 21:19 This 48 yrs old Male presents to ER via Unassigned with complaints of sp4 Vomiting/Diarrhea, Fever, Cough. 03/05 21:37 8-year-old male presents with 1 week of cough, vomiting diarrhea fever and feeling sp4 unwell.. Historical: - Allergies: 03/04 21:30 No Known Allergies; tl4 - Home Meds: 21:30 lisinopril 40 mg oral tablet 1 tab daily [Active]; tl4 - PMHx: 21:30 Diabetes - NIDDM; Hypertension; Pneumonia; tl4 - PSHx: 21:30 None; tl4 - Immunization history:: Adult Immunizations unknown. - Infectious Disease History:: Denies. - Social history:: Smoking status: Patient denies any tobacco usage or history of. - Family history:: not pertinent. ROS: 03/05 21:37 Constitutional: Positive for fever, nausea vomiting diarrhea, cough, generalized sp4 weakness All other systems are negative, Exam: 21:37 Constitutional: This is a well developed, well nourished patient who is awake, alert, sp4 and in no acute distress. Febrile on arrival Head/Face: Normocephalic, atraumatic. Eyes: Pupils equal round and reactive to light, extra-ocular motions intact. Lids and lashes normal. Conjunctiva and sclera are not injected. Cornea within normal limits. Periorbital areas with no swelling, redness, or edema. ENT: Nares patent. No nasal discharge, no septal abnormalities noted. Tympanic membranes are normal and external auditory canals are clear. Oropharynx with no redness, swelling, or masses, exudates, or evidence of obstruction, uvula midline. Mucous membranes moist. Neck: Trachea midline, no thyromegaly or masses palpated, and no cervical lymphadenopathy. Supple, full range of motion without nuchal rigidity, or vertebral point tenderness. Chest/axilla: Normal chest wall appearance and motion. Nontender with no deformity. No lesions are appreciated. Cardiovascular: Regular rate and rhythm with a normal S1 and S2. No gallops, murmurs, or rubs. Normal PMI, no JVD. No pulse deficits. Respiratory: Lungs have equal breath sounds bilaterally, clear to auscultation and percussion. No rales, rhonchi or wheezes noted. No increased work of breathing, no retractions or nasal flaring. Abdomen/GI: Soft, with normal bowel sounds. No distension or tympany. No guarding or rebound. No evidence of tenderness throughout. Back: No spinal tenderness. No costovertebral tenderness. Skin: Warm, dry with normal turgor. Normal color with no rashes, no lesions, and no evidence of cellulitis. MS/ Extremity: Pulses equal, no cyanosis. Neurovascular intact. Full, normal range of motion. Neuro: Awake and alert, GCS 15, oriented to person, place, time, and situation. Cranial nerves II-XII grossly intact. Motor strength 5/5 in all extremities. Sensory grossly intact. Psych: Awake, alert, with orientation to person, place and time. Behavior, mood, and affect are within normal limits Vital Signs: 03/04 21:26 BP 145 / 86; Pulse 116; Resp 20; Temp 103.2(O); Pulse Ox 95% on R/A; Weight 133.81 kg; tl4 Height 5 ft. 8 in. ; Pain 0/10; 03/05 00:11 BP 140 / 82; Pulse 85; Resp 16; Temp 99(O); Pulse Ox 100% on R/A; ss 03/04 21:26 Body Mass Index 44.85 (133.81 kg, 172.72 cm) tl4 03/04 21:26 Pain Scale: Adult tl4 MDM: 03/04 21:19 Patient medically screened. sp4 03/05 01:34 ED course: EXAM DESCRIPTION: Chest Pa And Lat (2 Views) CLINICAL HISTORY: cough , fever sp4 TECHNIQUE: PA and lateral chest COMPARISON: None available for comparison FINDINGS: CHEST: Heart: The cardiomediastinal silhouette is within normal limits. Lungs: No focal consolidation. Mediastinum: Unremarkable Pleura: No appreciable effusion. No pneumothorax. Bones: Intact IMPRESSION: No acute cardiopulmonary disease. . 01:41 Differential diagnosis: Nonspecific abd pain, gastritis, viral gastroenteritis, sp4 gastroenteritis. Data reviewed: vital signs, nurses notes, lab test result(s), radiologic studies, plain films. ED course: Patient stable for discharge home will cover with Zithromax and cephalexin.. 21:37 Consideration of Admission/Observation Escalation of care including sp4 admission/observation considered. ED course: Able for discharge home will cover with Zithromax. 03/04 21:19 Order name: SARS RAPID; Complete Time: 01:15 sp4 03/04 21:54 Order name: Flu; Complete Time: :15 sb4 03/04 21:54 Order name: Strep; Complete Time: :15 sb4 03/04 22:10 Order name: CBC with Diff; Complete Time: :15 sp4 03/04 22:10 Order name: CMP; Complete Time: :15 sp4 03/04 22:10 Order name: Lipase; Complete Time: :15 sp4 03/04 22:10 Order name: Urinalysis w/ reflexes; Complete Time: :15 sp4 03/04 22:11 Order name: [place] Screen Profile; Complete Time: :15 sp4 03/04 22:49 Order name: Throat Culture EDID 03/04 22:11 Order name: Chest Pa And Lat (2 Views) XRAY sp4 03/04 22:10 Order name: IV Saline Lock; Complete Time: 22:38 sp4 03/04 22:10 Order name: Labs collected and sent; Complete Time: 22:38 sp4 Administered Medications: 03/04 21:37 Drug: Ibuprofen PO 800 mg PO once Route: PO; tl4 22:13 Follow up: Response: No adverse reaction; Temperature is decreased tl4 22:51 Drug: Acetaminophen PO 1000 mg PO once Route: PO; 03/05 02:05 Follow up: Response: No adverse reaction; Marked relief of symptoms; Temperature is ss decreased 03/04 22:51 Drug: NS 0.9% IV 1000 ml IV at 1 bolus Per protocol; 1000 mL bolus Route: IV; Rate: 1 ss bolus; Site: right antecubital; 03/05 00:02 Follow up: IV Status: Completed infusion; IV Intake: 1000ml 03/04 22:51 Drug: Dextromethorphan-Guaifenesin PO Liquid 10 mg-100 mg/5 mL 10 ml PO once Route: PO; 03/05 01:58 Follow up: Response: No adverse reaction ss 00:10 Drug: NS 0.9% IV 1000 ml IV at 1 bolus Per protocol; 1000 mL bolus Route: IV; Rate: 1 ss bolus; Site: right antecubital; 01:30 Follow up: IV Status: Completed infusion; IV Intake: 1000ml ss 01:25 Drug: Rocephin - Rocephin (cefTRIAXone) IVPB 1 grams IVPB once over 30 mins; (mix in 50 ss mL NS) Route: IVPB; Infused Over: 30 mins; Site: right antecubital; 02:04 Follow up: IV Status: Completed infusion ss 01:25 Drug: AZITHromycin PO 500 mg PO once Route: PO; ss 01:58 Follow up: Response: No adverse reaction; Medication administered at discharge. Disposition Summary: 03/05/24 01:42 Discharge Ordered Notes: Location: Home sp4 Problem: new sp4 Symptoms: have improved sp4 Condition: Stable sp4 Diagnosis - Acute bronchitis, unspecified sp4 - Febrile illness, acute bacterial bronchitis sp4 Followup: sp4 - With: Private Physician - When: 7 - 10 days - Reason: Recheck today's complaints Discharge Instructions: - Discharge Summary Sheet sp4 - Acute Bronchitis, Adult sp4 Forms: - Patient Portal Instructions sp4 Prescriptions: - dextromethorphan-guaifenesin 20-400 mg Oral tablet - take 2 tablet ORAL route every 6 hours PRN cough; 40 tablet; Refills: 0, sp4 Product Selection Permitted - Cephalexin 500 mg Oral Capsule - take 1 capsule ORAL route every 12 hours for 10 days; 20 capsule; Refills: 0, sp4 Product Selection Permitted - Ibuprofen 800 mg Oral tablet - take 1 tablet ORAL route every 6 hours As needed take with food; 30 tablet; sp4 Refills: 0, Product Selection Permitted - Zithromax Z-Jt 250 mg Oral Tablet - take 1 tablet ORAL route as directed for 5 days Day 1 - take two (2) tablets sp4 one time. Day 2, 3, 4 , 5 take one (1) tablet once daily.; 6 tablet; Refills: 0, Product Selection Permitted Signatures: Dispatcher [employer] Roxy Wells RN RN ss Simon Doherty MD MD sp4 Leo Bey RN RN tl4
[2024-03-05 07:25] VITALS: BP 140/82; TEMP 99; O2SAT 100
--- NOTE | 2024-03-05 19:37 | RAD REPORT ---
EXAM DESCRIPTION: Chest Pa And Lat (2 Views) CLINICAL HISTORY: Cough , fever TECHNIQUE: PA and lateral chest COMPARISON: None available for comparison FINDINGS: CHEST: Heart: The cardiomediastinal silhouette is within normal limits. Lungs: No focal consolidation. Mediastinum: Unremarkable Pleura: No appreciable effusion. No pneumothorax. Bones: Intact IMPRESSION: No acute cardiopulmonary disease. Electronically signed by: Ton Choudhary MD 03/04/2024 11:34 PM CDT RP Due to temporary technical issues with the PACS/Fluency reporting system, reports are being signed by the in house radiologists without review as a courtesy to insure prompt reporting. The interpreting radiologist is fully responsible for the content of the report.
== END 2024-03-05 02:03 | disposition home or self-care (01) ==
LOC: ER 21:15
DX: J20.9 Acute bronchitis, unspecified (principal); Z11.52 Encounter for screening for COVID-19
CPT/HCPCS: 96365; 96361; 87070; 85025; 81001; 36415; 86308; 87081; 83690; 80053; 87804 ×2; 71046; 99284; 87811; J7030; J0696